=== PATIENT | female | born 1945 ===

== ENCOUNTER 2024-12-21 06:00 | Day surgery (SDC) | payer OTHER ==
[2024-12-14 11:54] VITALS: BP 165/105
[2024-12-14 11:55] VITALS: BP 130/90
[~2024-12-21] VITALS: Ht 152.4 cm; Wt 60.3 kg
[~2024-12-21 06:00] MED LIST: BRILINTA60 MG PO; FUSION PLUS CA1 EACH PO; LEVOTHYROXINE25 MCG PO; LIPITOR40 MG PO; LOSARTAN POTASS50 MG PO; NORVASC5 MG PO; RESTORIL30 M1 PO; SYNJARDY 5-5001 EACH PO; TOPROL XL50 M1 PO
[2024-12-21 09:25] LABS: RH POSITIVE
[2024-12-21] MEDS ORDERED: TRAM1TAB98 PO (09:55)
[2024-12-22] MEDS ORDERED: CHLORHEXIDINE GLUCONATE 120 ML BOTTLE TOP ONE (14:00)
[2024-12-22] MEDS ORDERED: CEFAZOLIN SODIUM 1,000 MG VIAL IV ONE (14:00)
== END 2024-12-21 12:10 | disposition home or self-care (01) ==
LOC: CIR.AMB 06:00
PROVIDERS: ATTEND Obstetrics & Gynecology Gynecology
DX: N81.3 Complete uterovaginal prolapse (principal); N81.83 Incompetence or weakening of rectovaginal tissue